=== PATIENT | male | born 1945 | race Caucasian/White ===

== ENCOUNTER 2017-08-09 19:15 | Emergency (ER) | payer MEDICARE ==
[2017-08-09] MEDS ORDERED: Effient 10 MG TABLET PO ONE (19:16)
[2017-08-09] MEDS ORDERED: BABY ASPIRIN 81 MG CHEW PO ONE ×2 (19:16→19:40)
[2017-08-09] MEDS ORDERED: Nitrostat 0.4 MG (ED) SL ONE ×2 (19:16→19:40)
[2017-08-09] MEDS ORDERED: Ntg 0.2MG/Ml in D5W GLASS*** 250 ML IV ONE (19:16)
[2017-08-09 19:22] VITALS: BP 176/109; O2SAT 98
[2017-08-09 19:29] VITALS: PULSE 85
[2017-08-09] MEDS ORDERED: Sodium Chloride 0.9% 1000 ML 1,000 ML IV STA (19:40)
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
[2017-08-09 19:50] LABS: BASOPHIL % 0.2 % (0.0-0.4); Eosinophil % 0.3 % (0.00-5.0); Granulocytes % 82.5 % (36.0-66.0); Lymphocytes % 10.1 % (24.0-44.0); Mean Cell Volume 88.3 fl (78-100); Mean Corpuscular Hemoglobin 29.1 pg (26-32); Mean Platelet Volume 9.4 fl (6-9.5); Monocytes % 6.9 % (0.0-12.0); Platelet Count 204 K/mm3 (150-450); Red Blood Count 4.71 M/mm3 (4.1-5.6); Red Cell Distribution Width 13.4 % (11.5-14.0)
[2017-08-09] MEDS ORDERED: Sodium Chloride 0.9% 1000 ML 1,000 ML ONE (19:50)
[2017-08-09] MEDS ORDERED: Phenergan 25 MG INJ ONE (19:52)
[2017-08-09] MEDS ORDERED: Sodium Chloride 0.9% 1000 ML 0 ML ONE (19:52)
[2017-08-09] MEDS ORDERED: Hydromorphone 1 mg/ml Ampule IV ONE (20:00)
[2017-08-09] MEDS ORDERED: Hydromorphone 1 mg/ml Ampule ONE (20:02)
[2017-08-09 20:18] LABS: ALBUMIN 3.6 g/dL (3.4-5.0); ANION GAP 17.2 MEQ/L (5-15); BILIRUBIN,TOTAL 0.4 mg/dL (0.2-1.0); Carbon Dioxide 22.5 mEq/L (21-32); MAGNESIUM 1.7 mg/dL (1.8-2.4); Potassium 4.2 mEq/L (3.5-5.1); Total Protein 7.4 gm/dL (6.4-8.2)
--- NOTE | 2017-08-10 20:57 | XRAY ---
Exam: AP portable chest film from 2015 hrs. on 08/09/2017. Comparison: AP portable chest film from 06/03/2014 and two-view chest series from 01/23/2014 Indication: Chest pain. Findings: The transverse heart size appears within normal limits. There is mild tortuosity of the descending thoracic aorta. I note a mild lower mid thoracic levoscoliosis. The lungs are adequately inflated. There is a small calcified granuloma within the left costophrenic angle. Minimal costochondral calcification is seen at the anterior margin of the right fourth and fifth ribs. No air space infiltrates, vascular congestion, pneumothorax, or pleural fluid is seen. Impression: 1. No infiltrates, heart failure, or other acute cardiopulmonary disease is seen.
== END 2017-08-09 20:25 | disposition short-term general hospital (02) ==
LOC: ED 19:15
DX: I21.19 ST elevation (STEMI) myocardial infarction involving other coronary artery of inferior wall (principal); R07.89 Other chest pain; R11.0 Nausea; R05 Cough; M79.641 Pain in right hand; E78.00 Pure hypercholesterolemia, unspecified; E11.9 Type 2 diabetes mellitus without complications; Z79.899 Other long term (current) drug therapy; Z79.4 Long term (current) use of insulin
CPT/HCPCS: 36000; 36415; 71010; 80053; 82150; 83690; 83735; 83880; 84484; 85025; 86308; 87070; 87430; 87631; 93005; 93041; 96360; 96375; 99291; J1170; J2550; A9270-GY

== ENCOUNTER 2017-12-16 04:26 | Inpatient (IN) | payer MEDICARE ==
[2017-12-16] MEDS ORDERED: ZOFRAN ODT 4 MG PO ONE (04:46)
[2017-12-16] MEDS ORDERED: PROTONIX 40 MG IV IV ONE ×2 (04:49→04:52)
[2017-12-16] MEDS ORDERED: Zofran 4 MG/2 ML VIAL IV ONE ×2 (04:49→07:10)
[2017-12-16] MEDS ORDERED: ZOFRAN ODT 4 MG ONE (04:51)
[2017-12-16] MEDS ORDERED: Zofran 4 MG/2 ML VIAL ONE ×2 (04:52→07:13)
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
[2017-12-16] MEDS ORDERED: Sodium Chloride 0.9% 1000 ML 1,000 ML IV SCH ×2 (05:00→07:15)
[2017-12-16 05:41] LABS: BASOPHIL % 0.2 % (0.0-0.4); Basophil (Absolute #) 0.03 (0-0.4); Eosinophil % 0.9 % (0.00-5.0); Eosinophil (Absolute #) 0.15 (0-0.5); Granulocyte Absolute (ANC) 13.86 (1.4-6.9); Granulocytes % 84.3 % (36.0-66.0); Hematocrit 39.6 % (42-50); Hemoglobin 12.9 gm/dl (12.5-18.0); Lymphocyte (Absolute #) 1.32 (1.0-4.6); Mean Cell Volume 92.3 fl (78-100); Mean Corpuscular Hemoglobin 30.1 pg (26-32); Mean Corpuscular Hgb Concent. 32.6 g/dl (32-36); Mean Platelet Volume 9.9 fl (6-9.5); Monocyte (Absolute #) 1.09 (0.0-1.3); Monocytes % 6.6 % (0.0-12.0); Platelet Count 202 K/mm3 (150-450); Red Blood Count 4.29 M/mm3 (4.1-5.6); Red Cell Distribution Width 13.2 % (11.5-14.0); White Blood Count 16.5 K/mm3 (4.0-10.5)
[2017-12-16 06:09] LABS: ALBUMIN 3.6 g/dL (3.4-5.0); ANION GAP 17.2 MEQ/L (5-15); BILIRUBIN,TOTAL 0.3 mg/dL (0.2-1.0); Calcium 9.1 mg/dL (8.5-10.1); Carbon Dioxide 22.5 mEq/L (21-32); Creatinine 1 4.13 mg/dl (0.55-1.30); Potassium 4.4 mEq/L (3.5-5.1)
[2017-12-16] MEDS ORDERED: SUBLIMAZE 100 MCG/2 ML IV ONE (07:11)
[2017-12-16] MEDS ORDERED: SUBLIMAZE 100 MCG/2 ML ONE (07:14)
--- NOTE | 2017-12-16 09:11 | XRAY ---
Indication: Emesis, diarrhea, and chills. Multiple contiguous axial images obtained through the abdomen and pelvis without contrast as ordered. Comparison: September 27, 2014. Lung bases again demonstrates minimal bibasilar dependent atelectasis and calcified granulomas. Heart is not enlarged. Noncontrasted stomach and bowel loops appear nonobstructed. Appendix surgically absent. Mild fluid distended small and large bowel loops with some fluid leveling, ileus versus enterocolitis. No free fluid/air. Stable bilateral renal cortical thinning and a few calcified splenic granulomas. New 12 mm left upper pole exophytic high density lesion. Remaining liver, gallbladder, pancreas, spleen, adrenal glands, kidneys, ureters, and bladder appear unremarkable for noncontrast exam. Moderate aortoiliac calcifications without AAA. Osseous structures intact again with mild degenerative changes throughout the spine. Impression: 1. New left renal hyperdense lesion as detailed. Dedicated ultrasound or contrast-enhanced CT may yield further information. 2. Ileus versus enterocolitis. Comment: Preliminary interpretation was made by [facility]. No discrepancy. CTDI 22.29
[2017-12-16] MEDS: NovoLOG Insulin SQ PRN ×3 (09:54→16:25)
[2017-12-16] MEDS ORDERED: INSULIN LISPRO 20 UNIT SQ SCH (11:15)
[2017-12-16] MEDS ORDERED: Norco 10/325 MG Tablet PO PRN (11:15)
[2017-12-16] MEDS ORDERED: MEDICATION INTERVENTION MC PRN (11:22)
[2017-12-16] MEDS ORDERED: NovoLOG Insulin SQ SCH (11:30)
[2017-12-16] MEDS: Zofran 4 MG/2 ML VIAL IV PRN ×2 (12:02→18:26)
[2017-12-16] MEDS: DILAUDID 2 MG INJECTION IV PRN ×2 (12:10→18:26)
[2017-12-16] MEDS: Lopressor 50 MG PO SCH ×2 (12:14→21:16)
[2017-12-16] MEDS: NEURONTIN 300 MG PO SCH ×3 (12:14→21:06)
[2017-12-16] MEDS: Protonix 40MG Tablet PO SCH ×2 (12:15→21:07)
[2017-12-16] MEDS: ROCEPHIN 1 Gm-D5w 50 ml Bag** 1 G/50 ML IVPB IV SCH (12:23)
[2017-12-16 12:25] LABS: 027 TOX PROD PRESUMPTIVE NEGATIVE (NEGATIVE); TOXIGENIC C. DIFF ORG NEGATIVE (NEGATIVE)
[2017-12-16] MEDS: FLAGYL 500 MG IVPB 500 MG/100 ML BAG IV SCH ×3 (13:25→21:07)
[2017-12-16] MEDS ORDERED: ZOCOR 20MG PO SCH (22:00)
[2017-12-16] MEDS ORDERED: Prozac 20 MG PO SCH (22:00)
[2017-12-16] MEDS ORDERED: PLAVIX 75 MG Tablet PO SCH (22:00)
[2017-12-16] MEDS ORDERED: NON-FORMULARY ITEM (Atorvastatin Calcium [Atorvastatin Calcium] 80 MG) PO SCH (22:00)
[2017-12-17] MEDS: Sodium Chloride 0.9% 1000 ML 1,000 ML IV SCH ×2 (00:04→11:18)
[2017-12-17] MEDS: Zofran 4 MG/2 ML VIAL IV PRN (05:05)
[2017-12-17] MEDS: FLAGYL 500 MG IVPB 500 MG/100 ML BAG IV SCH (05:07)
[2017-12-17] MEDS: DILAUDID 2 MG INJECTION IV PRN (05:07)
[2017-12-17 05:33] LABS: Hematocrit 39.2 % (42-50); Hemoglobin 12.5 gm/dl (12.5-18.0); Mean Corpuscular Hgb Concent. 31.9 g/dl (32-36); Mean Platelet Volume 9.7 fl (6-9.5); Platelet Count 160 K/mm3 (150-450); Red Blood Count 4.17 M/mm3 (4.1-5.6); Red Cell Distribution Width 13.6 % (11.5-14.0); White Blood Count 6.4 K/mm3 (4.0-10.5)
[2017-12-17 06:01] LABS: ALBUMIN 3.4 g/dL (3.4-5.0); ANION GAP 17.8 MEQ/L (5-15); BILIRUBIN,TOTAL 0.2 mg/dL (0.2-1.0); Calcium 8.3 mg/dL (8.5-10.1); Carbon Dioxide 18.4 mEq/L (21-32); Creatinine 1 4.39 mg/dl (0.55-1.30); Potassium 3.9 mEq/L (3.5-5.1); Total Protein 6.8 gm/dL (6.4-8.2)
[2017-12-17] MEDS: ROCEPHIN 1 Gm-D5w 50 ml Bag** 1 G/50 ML IVPB IV SCH (09:27)
[2017-12-17] MEDS: Protonix 40MG Tablet PO SCH (09:27)
[2017-12-17] MEDS: NEURONTIN 300 MG PO SCH (09:27)
[2017-12-17] MEDS: Lopressor 50 MG PO SCH (09:27)
[2017-12-17] MEDS ORDERED: PROTONIX 40 MG IV IV SCH (10:00)
[2017-12-17] MEDS ORDERED: BENADRYL 50 MG/ML IV PRN (10:00)
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
[2017-12-17 13:15] VITALS: BP 121/70; PULSE 80; O2SAT 99
--- NOTE | 2017-12-17 13:52 | HP ---
HISTORY OF PRESENT ILLNESS: Jesse Yusuf is a 72 year old male with past medical history of hypertension, congestive heart failure, diabetes mellitus, chronic renal failure, coronary artery disease, hyperlipidemia, anxiety and chronic pain syndrome. He presented to the emergency room earlier this morning with symptoms of several episodes of vomiting and diarrhea which had started three hours prior to his presentation. He had complained of generalized weakness, not feeling well overall, feeling cold. He denied any intake of unusual diet. Initial vitals in the emergency room were: Blood pressure 128/99, heart rate 80, respiratory rate 16 and temperature 97.4F. After initial evaluation he was treated with normal saline 1 liter, Fentanyl 50 mcg IV x1, Zofran 4 mg IV x2, Protonix 40 mg IV x1. Subsequently he was admitted to the medical floor for further monitoring and management. Since admission he continued to have persistence of vomiting and diarrhea. At the time of this evaluation earlier today he was complaining of nausea and several episodes of diarrhea, generalized abdominal discomfort. Complained of fatigue. PAST MEDICAL/SURGICAL HISTORY: As noted above. The patient states that his dialysis was discontinued about three weeks ago since his kidney doctor advised him that he does not need it anymore. Kidney stones. Abscess on spine treated with IV antibiotics. Back surgery, tonsillectomy. ALLERGIES: MORPHINE. MEDICATIONS: Current medications were reviewed. FAMILY HISTORY: Noncontributory. SOCIAL HISTORY: The patient lives at home and is a former smoker, has smoked for 30 years. He denies any illicit drug use. REVIEW OF SYSTEMS: Denies headache or dizziness. Complains of chills. Complains of fatigue. Denies chest pain, shortness of breath or cough. Complains of abdominal pain, nausea, vomiting and diarrhea. Denies urinary complaints. PHYSICAL EXAMINATION: An elderly male lying comfortably in bed, not in acute distress. VITAL SIGNS: Blood pressure 126/70, heart rate 86, respiratory rate 20, temperature 97F. Oxygen saturation 93% on room air. HEENT: Pallor is present. NECK: No JVD is present. CVS: S1, S2 present. RESPIRATORY: Breath sounds are bilaterally diminished and clear to auscultation anteriorly. ABDOMEN: Obese, soft, generalized tenderness present. No guarding or rigidity present. NEURO: He is alert, oriented x3. Hard of hearing. Answers simple questions. Follows simple commands. EXTREMITIES: No edema on bilateral lower extremities. LABORATORY DATA AND TESTS: Labs from today showed CBC with white blood cell 16.5, hemoglobin 12.9, hematocrit 49.6, PLT 202,000. CMP notable for BUN 54, creatinine 4.13, glucose 243. Liver function test unremarkable. Lipase within normal limits. CT scan of abdomen and pelvis showed no mucosal bowel wall thickening, findings most likely representing enterocolitis per preliminary report. ASSESSMENT: A72 year old man with impression: 1) Abdominal pain likely enterocolitis. 2) Nausea and vomiting. 3) Renal insufficiency. 4) Dehydration. 5) Diarrhea. 6) History of hypertension/congestive heart failure. 7) Diabetes mellitus with diabetic neuropathy. 8) Chronic back pain. 9) Anxiety. PLAN: The patient is admitted for further monitoring and management. Will continue IV fluids. Anti-emetics were added. Stool Clostridium difficile was negative. Will recheck on stool Clostridium difficile. Broad spectrum IV antibiotics have been added. Continue PRN analgesics. Continue to follow CBC and electrolytes. Discussed with the patient regarding possible nephrology consultation if renal functions remain abnormal. The patient does not wish to pursue nephrology consultation at this time. The patient's clinical condition, work up results as outline and plan of management was discussed with him. He seems to be in understanding and agreement of the same except opting obtaining the nephrology consult. The plan was discussed with charge nurse, Aruna.
== END 2017-12-17 13:30 | disposition home or self-care (01) | DRG 683 ==
LOC: ED 04:26 → MED SURG 07:37
PROVIDERS: ADMIT General Practice; ATTEND General Practice
DX: R11.10 Vomiting, unspecified (principal); R19.7 Diarrhea, unspecified; E11.00 Type 2 diabetes mellitus with hyperosmolarity without nonketotic hyperglycemic-hyperosmolar coma (NKHHC); N18.9 Chronic kidney disease, unspecified; N17.8 Other acute kidney failure; G62.9 Polyneuropathy, unspecified; M19.90 Unspecified osteoarthritis, unspecified site; K21.9 Gastro-esophageal reflux disease without esophagitis; I13.2 Hypertensive heart and chronic kidney disease with heart failure and with stage 5 chronic kidney disease, or end stage renal disease; K52.9 Noninfective gastroenteritis and colitis, unspecified; N18.5 Chronic kidney disease, stage 5; E11.40 Type 2 diabetes mellitus with diabetic neuropathy, unspecified; I25.10 Atherosclerotic heart disease of native coronary artery without angina pectoris; E78.5 Hyperlipidemia, unspecified; F41.9 Anxiety disorder, unspecified; G89.4 Chronic pain syndrome; Z87.891 Personal history of nicotine dependence; E86.0 Dehydration
CPT/HCPCS: 36000; 36415; 74176; 80053; 82150; 82962; 83690; 85025; 85027; 87040; 87177; 87209; 87493; 87507; 99285; J0696; J1170; J2405; J3010; Q0162; A9270-GY

== ENCOUNTER 2017-12-18 19:23 | Inpatient (IN) | payer MEDICARE ==
[2017-12-18] MEDS ORDERED: SUBLIMAZE 100 MCG/2 ML IV ONE (19:51)
[2017-12-18] MEDS ORDERED: Phenergan 25 MG INJ IV ONE (19:51)
[2017-12-18] MEDS ORDERED: Sodium Chloride 0.9% 1000 ML 1,000 ML IV STA (19:51)
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
[2017-12-18 20:13] LABS: BASOPHIL % 0.1 % (0.0-0.4); Basophil (Absolute #) 0.01 (0-0.4); Eosinophil % 1.2 % (0.00-5.0); Eosinophil (Absolute #) 0.11 (0-0.5); Granulocyte Absolute (ANC) 7.52 (1.4-6.9); Granulocytes % 80.8 % (36.0-66.0); Hematocrit 39.6 % (42-50); Hemoglobin 12.6 gm/dl (12.5-18.0); Lymphocyte (Absolute #) 0.96 (1.0-4.6); Lymphocytes % 10.3 % (24.0-44.0); Mean Cell Volume 94.3 fl (78-100); Mean Corpuscular Hgb Concent. 31.8 g/dl (32-36); Mean Platelet Volume 9.5 fl (6-9.5); Monocyte (Absolute #) 0.71 (0.0-1.3); Monocytes % 7.6 % (0.0-12.0); Platelet Count 173 K/mm3 (150-450); Red Cell Distribution Width 13.4 % (11.5-14.0); White Blood Count 9.3 K/mm3 (4.0-10.5)
[2017-12-18] MEDS ORDERED: Phenergan 25 MG INJ ONE (20:17)
[2017-12-18] MEDS ORDERED: Sodium Chloride 0.9% 1000 ML 1,000 ML ONE (20:18)
[2017-12-18] MEDS ORDERED: SUBLIMAZE 100 MCG/2 ML ONE (20:18)
[2017-12-18 20:54] LABS: ALBUMIN 3.7 g/dL (3.4-5.0); ANION GAP 16.7 MEQ/L (5-15); BILIRUBIN,TOTAL 0.3 mg/dL (0.2-1.0); Calcium 8.6 mg/dL (8.5-10.1); Carbon Dioxide 19.8 mEq/L (21-32); Creatinine 1 4.61 mg/dl (0.55-1.30); Potassium 4.2 mEq/L (3.5-5.1); Total Protein 7.2 gm/dL (6.4-8.2)
[2017-12-18] MEDS ORDERED: Magnesium 1 Gm / 100 Ml D5W*** 100 ML IV ONE ×2 (22:21→23:00)
[2017-12-18 23:29] LABS: Appearance CLEAR (CLEAR); Leukocyte Esterase TRACE (NEGATIVE); Nitrite NEGATIVE (NEGATIVE); Protein,Urine Dip 30 (Negative); Specific Gravity 1.015 (1.005-1.025)
[2017-12-18 23:30] LABS: Amourphous Crystal FEW /HPF (NEGATIVE); Bacteria FEW /HPF (NEGATIVE); Bilirubin NEGATIVE (NEGATIVE); Blood 50 Ery/ul (0-5); Epithelial Cells RARE /HPF (FEW); Glucose 1000 mg/dL (NEGATIVE); Ketones SMALL (NEGATIVE); Urobilinogen NORMAL mg/dL (0-1)
[2017-12-19] MEDS: Sodium Chloride 0.9% 1000 ML 1,000 ML IV SCH ×3 (02:39→22:30)
[2017-12-19] MEDS: SUBLIMAZE 100 MCG/2 ML IV PRN ×3 (03:35→19:43)
[2017-12-19] MEDS: Phenergan 25 MG INJ IV PRN ×2 (04:01→18:27)
[2017-12-19] MEDS: NovoLOG Insulin SQ PRN (05:53)
[2017-12-19 06:20] LABS: BASOPHIL % 0.1 % (0.0-0.4); Basophil (Absolute #) 0.01 (0-0.4); Eosinophil % 1.2 % (0.00-5.0); Eosinophil (Absolute #) 0.08 (0-0.5); Granulocyte Absolute (ANC) 4.54 (1.4-6.9); Granulocytes % 66.7 % (36.0-66.0); Hematocrit 36.2 % (42-50); Hemoglobin 11.4 gm/dl (12.5-18.0); Lymphocyte (Absolute #) 1.43 (1.0-4.6); Mean Cell Volume 94.8 fl (78-100); Mean Corpuscular Hemoglobin 29.8 pg (26-32); Mean Corpuscular Hgb Concent. 31.5 g/dl (32-36); Mean Platelet Volume 9.6 fl (6-9.5); Monocyte (Absolute #) 0.75 (0.0-1.3); Platelet Count 163 K/mm3 (150-450); Red Blood Count 3.82 M/mm3 (4.1-5.6); Red Cell Distribution Width 13.5 % (11.5-14.0); White Blood Count 6.8 K/mm3 (4.0-10.5)
[2017-12-19 07:35] LABS: ALBUMIN 3.1 g/dL (3.4-5.0); ANION GAP 16.7 MEQ/L (5-15); BILIRUBIN,TOTAL 0.1 mg/dL (0.2-1.0); Calcium 8.1 mg/dL (8.5-10.1); Carbon Dioxide 17.5 mEq/L (21-32); Creatinine 1 4.09 mg/dl (0.55-1.30); MAGNESIUM 2.1 mg/dL (1.8-2.4); Potassium 4.1 mEq/L (3.5-5.1); Total Protein 6.3 gm/dL (6.4-8.2)
--- NOTE | 2017-12-19 08:45 | XRAY ---
Indication: Abdominal pain and emesis. Recent treatment for flu. Multiple contiguous axial images obtained through the abdomen and pelvis without contrast as ordered. Comparison: December 16, 2017. Lung bases again demonstrates minimal bibasilar dependent atelectasis and calcified granulomas. Heart is not enlarged. Noncontrasted stomach unremarkable. Stable mild fluid distended small and large bowel loops with some fluid leveling again ileus versus enterocolitis. No free fluid/air. Previous reported appendectomy. Gallbladder demonstrates minimal gravel/sludge in the dependent portion without abnormal biliary distention. Again a few calcified splenic granulomas, bilateral renal cortical thinning, and small left upper renal exophytic high density lesion. Remaining liver, gallbladder, pancreas, spleen, adrenal glands, kidneys, ureters, and bladder appear unremarkable for noncontrast exam. Stable moderate aortoiliac calcifications. Osseous structures intact again with mild generative changes throughout the spine. Impression: 1. Minimal gallbladder gravel/sludge. Gallbladder sonogram may yield further information if clinically warranted. 2. Stable fluid distended small and large bowel loops, ileus versus enterocolitis. 3. Stable bilateral renal cortical thinning and small left renal hyperdense lesion. CT DI 21.98
--- NOTE | 2017-12-19 08:49 | XRAY ---
Indication: Abdominal pain. Two-dimensional right upper quadrant abdominal sonogram performed. Comparison: March 20, 2012. Gallbladder appears partially contracted with new tiny intraluminal gravel/sludge in the dependent portion. Gallbladder wall is thickened measuring 3.5 mm and could be explained by contracted appearance. No pericholecystic fluid. Common bile duct measures 5.8 mm. No intrahepatic biliary distention. Remaining visualized portions of the liver, pancreas, and right kidney appear sonographically unremarkable. Right kidney measures 10.8 cm in length. No ascites. Impression: 1. Partially contracted gallbladder which could explain wall thickening though chronic cholecystitis cannot be completely excluded. New tiny intraluminal gravel/sludge. 2. Remaining gallbladder sonogram is negative.
[2017-12-19] MEDS ORDERED: PROTONIX 40 MG IV IV SCH (10:00)
[2017-12-19] MEDS: FLAGYL 500 MG IVPB 500 MG/100 ML BAG IV SCH ×2 (10:03→18:20)
[2017-12-19] MEDS ORDERED: MEDICATION INTERVENTION MC PRN (10:48)
[2017-12-19] MEDS: Norco 10/325 MG Tablet PO PRN ×2 (11:03→18:28)
[2017-12-19] MEDS: Lantus Insulin SQ SCH ×3 (11:03→22:26)
[2017-12-19] MEDS: Lopressor 50 MG PO SCH ×2 (11:03→22:24)
[2017-12-19] MEDS: NEURONTIN 300 MG PO SCH ×3 (11:03→22:25)
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
[2017-12-19] MEDS ORDERED: BRIDION 200MG/2ML IV ONE (14:11)
[2017-12-19] MEDS ORDERED: SUBLIMAZE 250 MCG/5 ML IV ONE (14:11)
[2017-12-19] MEDS ORDERED: DIPRIVAN 200 MG/20 ML IV ONE (14:11)
[2017-12-19] MEDS ORDERED: Zofran 4 MG/2 ML VIAL IV ONE (14:11)
[2017-12-19] MEDS ORDERED: Zemuron 100 MG/10 ML IV ONE (14:11)
[2017-12-19] MEDS ORDERED: NON-FORMULARY ITEM (Insulin Detemir [Levemir] 10 UNIT) SQ SCH (15:00)
[2017-12-19] MEDS ORDERED: INSULIN LISPRO 20 UNIT SQ SCH (17:00)
[2017-12-19] MEDS: NovoLOG Insulin SQ SCH (17:44)
[2017-12-19] MEDS ORDERED: NON-FORMULARY ITEM (Atorvastatin Calcium [Atorvastatin Calcium] 80 MG) PO SCH (22:00)
[2017-12-19] MEDS: PLAVIX 75 MG Tablet PO SCH (22:25)
[2017-12-19] MEDS: Prozac 20 MG PO SCH (22:25)
[2017-12-19] MEDS: ZOCOR 20MG PO SCH (22:25)
[2017-12-19] MEDS: Protonix 40MG Tablet PO SCH (22:25)
[2017-12-20] MEDS: FLAGYL 500 MG IVPB 500 MG/100 ML BAG IV SCH ×3 (01:47→17:47)
[2017-12-20] MEDS: NovoLOG Insulin SQ PRN ×2 (04:32→22:55)
[2017-12-20 06:18] LABS: Hematocrit 35.9 % (42-50); Hemoglobin 11.3 gm/dl (12.5-18.0); Mean Cell Volume 95.5 fl (78-100); Mean Corpuscular Hgb Concent. 31.5 g/dl (32-36); Mean Platelet Volume 9.7 fl (6-9.5); Platelet Count 153 K/mm3 (150-450); Red Blood Count 3.76 M/mm3 (4.1-5.6); Red Cell Distribution Width 13.7 % (11.5-14.0); White Blood Count 5.6 K/mm3 (4.0-10.5)
[2017-12-20 06:24] LABS: ALBUMIN 2.7 g/dL (3.4-5.0); ALKALINE PHOSPHATASE 58 U/L (46-116); ANION GAP 12.9 MEQ/L (5-15); BLOOD UREA NITROGEN 39 mg/dL (9-20); CHLORIDE 117 mEq/L (98-107); Calcium 7.6 mg/dL (8.5-10.1); Carbon Dioxide 18.9 mEq/L (21-32); Creatinine 1 3.46 mg/dl (0.55-1.30); EST GLOMERULAR FILTRATION RATE 19 ML/MIN; Glucose 262 MG/DL (70-110); Potassium 3.9 mEq/L (3.5-5.1); SGOT/AST 17 U/L (15-37); SGPT/ALT 13 U/L (12-78); SODIUM 145 mEq/L (136-145); Total Protein 5.5 gm/dL (6.4-8.2)
[2017-12-20 06:28] LABS: BILIRUBIN,TOTAL < 0.10 mg/dL (0.2-1.0)
--- NOTE | 2017-12-20 07:56 | CONS ---
CONSULT DATE: 12/19/2017 REASON FOR CONSULT: Gallbladder disease. HISTORY: The patient is seen and examined at the bedside. He had Norovirus here recently, a bout of diarrhea that subsequently cleared. He now has some right upper quadrant discomfort. He has had the diarrhea. He has had nausea. He has had renal failure, heart attacks and multiple medical problems. Most of his medical history dates back about ten years. He has had multiple evaluations, several doses of dye. His creatinine clearance was down to 17%. He was found to have a paraspinal abscess. He spent over a year in rehab and then about a year at home. He subsequently has gotten quite a bit better. He then had renal insufficiency for about ten years that required dialysis about three to six months ago. He had two heart attacks with treatment here about six months ago. He has been struggling somewhat subsequently. He thinks his renal insufficiency is somewhat related to his diarrhea which is related to his gallbladder. On physical exam he has very mild right upper quadrant tenderness. He has no palpable mass. His CT scan shows a thickened, retracted gallbladder with stones, I believe was stones. He desires to have this out. He would like this out this admission if possible. Discussed with that Dr. Caceres is here tomorrow evening and might be able to have time to put this on the schedule. Probable laparoscopic possible open. The gallbladder wall is thickened and there is some increased risk and he is aware of this. IMPRESSION: Thickened gallbladder, chronic cholecystitis and cholelithiasis. PLAN: Laparoscopic cholecystectomy possible open. It will be scheduled as possible.
[2017-12-20] MEDS: Phenergan 25 MG INJ IV PRN ×3 (09:25→23:17)
[2017-12-20] MEDS: SUBLIMAZE 100 MCG/2 ML IV PRN ×2 (09:26→23:10)
--- NOTE | 2017-12-20 10:09 | XRAY ---
Indication: Preop exam. Comparison: August 09, 2017. PA/lateral chest again hyperinflated with new right-sided large-bore double-lumen dialysis catheter. Stable left costophrenic angle calcified granuloma. Heart and mediastinal structures within normal limits. Bony thorax intact again with mild degenerative changes. Impression: 1. New right-sided dialysis catheter without complications. 2. Nonacute hyperinflated chest with evidence for old granulomatous disease.
[2017-12-20] MEDS ORDERED: Lactated Ringers 1,000 ML IV ONE (10:24)
[2017-12-20] MEDS ORDERED: Sensorcaine 0.25% 10 ML ONE (10:24)
[2017-12-20] MEDS: Protonix 40MG Tablet PO SCH ×2 (11:19→22:54)
[2017-12-20] MEDS: Lopressor 50 MG PO SCH ×2 (11:20→22:54)
[2017-12-20] MEDS ORDERED: MEFOXIN 2 GM PREMIX** 2 GM/50 ML ML IV SCH (12:00)
[2017-12-20] MEDS ORDERED: Lactated Ringers 1,000 ML IV SCH (12:00)
--- NOTE | 2017-12-20 12:01 | PCM.NOTE ---
Date and Time: 12/20/17 1159 Subjective Assessment: going for gall bladder surgery today - Review of Systems Constitutional: No Fever, No Chills Eyes: No Symptoms Ears, Nose, & Throat: No Symptoms Respiratory: No Cough, No Short Of Breath Cardiac: No Chest Pain, No Edema, No Syncope Abdominal/Gastrointestinal: No Abdominal Pain, No Nausea, No Vomiting, No Diarrhea Genitourinary Symptoms: No Dysuria Musculoskeletal: No Back Pain, No Neck Pain Skin: No Rash Neurological: No Dizziness, No Focal Weakness, No Sensory Changes Psychological: No Symptoms Endocrine: No Symptoms Hematologic/Lymphatic: No Symptoms Immunological/Allergic: No Symptoms Objective Exam General Appearance: no apparent distress, alert Neurologic Exam: alert, oriented x 3, cooperative, normal mood/affect, nml cerebellar function, sensation nml, No motor deficits Skin Exam: normal color, warm, dry Eye Exam: PERRL, EOMI, eyes nml inspection Ears, Nose, Throat Exam: normal ENT inspection, pharynx normal, moist mucous membranes Neck Exam: normal inspection, non-tender, supple, full range of motion Respiratory Exam: normal breath sounds, lungs clear, No respiratory distress Cardiovascular Exam: regular rate/rhythm, normal heart sounds Gastrointestinal/Abdomen Exam: soft, No tenderness, No mass Extremity Exam: normal inspection, normal range of motion Back Exam: normal inspection, normal range of motion, No CVA tenderness, No vertebral tenderness Male Genitalia Exam: deferred Rectal Exam: deferred OBJECTIVE DATA Vital Signs: Vital Signs - 24 hr Temp Pulse Resp BP Pulse Ox 12/20/17 11:33 98 F 80 20 138/80 96 12/20/17 07:39 98 F 80 20 138/80 96 12/20/17 04:00 98.2 F 71 18 137/74 97 12/20/17 00:00 98.5 F 77 18 144/76 98 12/19/17 20:00 98.3 F 71 20 157/73 100 12/19/17 15:07 97.8 F 82 20 126/70 98 Pain Assessment - Last Documented Pain Intensity 4 Pain Scale Used [facility] Intake and Output: Intake & Output 12/17/17 12/18/17 12/19/17 12/20/17 11:59 11:59 11:59 11:59 Intake Total 3136 Output Total 1000 Balance 2136 Weight 78.6 kg Lab Results: Accuchecks Date 12/20/17 Date 12/19/17 Date 12/19/17 Time 04:00 Time 20:00 Time 17:41 Accucheck Value: 211 Accucheck Value: 189 Accucheck Value: 153 Lab Results-Last 24 Hours 12/20/17 12/20/17 Range/Units 05:40 05:40 WBC 5.6 (4.0-10.5) K/mm3 RBC 3.76 L (4.1-5.6) M/mm3 Hgb 11.3 L (12.5-18.0) gm/dl Hct 35.9 L (42-50) % MCV 95.5 (78-100) fl MCH 30.0 (26-32) pg MCHC 31.5 L (32-36) g/dl RDW 13.7 (11.5-14.0) % Plt Count 153 (150-450) K/mm3 MPV 9.7 H (6-9.5) fl Sodium 145 (136-145) mEq/L Potassium 3.9 (3.5-5.1) mEq/L Chloride 117 H (98-107) mEq/L Carbon Dioxide 18.9 L (21-32) mEq/L Anion Gap 12.9 (5-15) MEQ/L BUN 39 H (9-20) mg/dL Creatinine 3.46 H (0.55-1.30) mg/dl Estimated GFR 19 ML/MIN Glucose 262 H (70-110) MG/DL Calcium 7.6 L (8.5-10.1) mg/dL Total Bilirubin < 0.10 L (0.2-1.0) mg/dL AST 17 (15-37) U/L ALT 13 (12-78) U/L Alkaline Phosphatase 58 (46-116) U/L Serum Total Protein 5.5 L (6.4-8.2) gm/dL Albumin 2.7 L (3.4-5.0) g/dL Radiology Exams: Radiology Procedures Category Date Time Status CHEST 2 VIEWS (PA AND LAT) Urgent Exams 12/20/17 09:15 Completed Multi-Disciplinary Progress Notes: Multi-Disciplinary Progress Notes 12/20/17 10:30 (created 12/20/17 11:07) Case Management Note by Aliyah Sheriff SPOKE WITH DR. SIERRA PER ANESTHESIA REQUEST FOR MEDICAL CLEARANCE FOR SURGERY WITH ELEVATED BUN/CREAT. DR. SIERRA REPORTS THAT PT IS MEDICALLY CLEARED, ELEVATED BUN/CREAT IS CHRONIC IN NATURE. Initialized on 12/20/17 11:07 - END OF NOTE Assessment/Plan (1) Cholecystitis Current Visit: Yes Status: Acute Assessment & Plan: going for surgery, patient is hemodynamicaly stable. Ok to proceed with surgery Code(s): K81.9 - CHOLECYSTITIS, UNSPECIFIED (2) Abdominal pain Current Visit: Yes Status: Acute Qualifiers: Abdominal location: right upper quadrant Qualified Code(s): R10.11 - Right upper quadrant pain Code(s): R10.9 - UNSPECIFIED ABDOMINAL PAIN (3) [id number] renal failure Current Visit: Yes Status: Acute Qualifiers: Code(s): N17.9 - ACUTE KIDNEY FAILURE, UNSPECIFIED; N18.9 - CHRONIC KIDNEY DISEASE, UNSPECIFIED (4) Diarrhea Current Visit: Yes Status: Acute Code(s): R19.7 - DIARRHEA, UNSPECIFIED (5) Nausea & vomiting Current Visit: Yes Status: Acute Code(s): R11.2 - NAUSEA WITH VOMITING, UNSPECIFIED (6) Chronic renal impairment Current Visit: Yes Status: Chronic Code(s): N18.9 - CHRONIC KIDNEY DISEASE, UNSPECIFIED
[2017-12-20] MEDS ORDERED: Sodium Chloride 0.9% 1000 ML 1,000 ML ONE (12:20)
[2017-12-20] MEDS: NovoLOG Insulin SQ SCH ×2 (12:58→20:14)
[2017-12-20] MEDS: NEURONTIN 300 MG PO SCH ×3 (12:59→22:54)
[2017-12-20] MEDS: Lantus Insulin SQ SCH ×3 (12:59→22:54)
[2017-12-20] MEDS: PLAVIX 75 MG Tablet PO SCH (15:08)
--- NOTE | 2017-12-20 15:26 | OP ---
SURGERY DATE/TIME: 12/20/2017 1335 PREOPERATIVE DIAGNOSES: 1) Symptomatic biliary sludge versus tiny stone. 2) Chronic cholecystitis. POSTOPERATIVE DIAGNOSIS: 1) Symptomatic biliary sludge versus tiny stone. 2) Chronic cholecystitis. PROCEDURE: Laparoscopic cholecystectomy. SURGEON: Dr. Abraham Caceres. ANESTHESIA: General. ESTIMATED BLOOD LOSS: Minimal. INDICATIONS: As noted above. Risks and benefits explained in detail but not limited to and consent was obtained. DESCRIPTION OF PROCEDURE AND FINDINGS: The patient was taken to the OR after taking some time to place lines preoperatively. General anesthesia was induced. Abdomen prepped and draped in the usual sterile fashion. After official time out and no disagreement with planned procedure, a transverse incision made at supraumbilical area. Fascia grasped and pulled upward. Veress needle inserted and tested with saline. Pneumoperitoneum accomplished insufflating opening pressure of 0-15. An 11 mm bladeless port and camera were inserted without difficulty followed by two - 5 mm right upper quadrant ports and a 5 mm epigastric port later. There was no evidence of any intra-abdominal injury secondary to trocar insertion. He had some extensive chronic fibrofatty inflammatory reaction around the gallbladder. It was retracted over the edge of the liver and dissected posterior, lateral to anterior fashion. Slowly and carefully dissecting the main cystic arterial branch on the gallbladder, clipped and divided. It opened up the angle. The cystic duct and infundibular junction slowly and carefully well skeletonized until a critical view was obtained both anteriorly and posteriorly. It should be noted at this point the gallbladder grasper this thin walled, friable gallbladder fell apart with the grasper spilling some bile. There was no evidence of any obvious stone or sludge spillage visible. Copious amount of irrigation irrigating until clear as possible. Gallbladder was regrasped. Slowly and carefully the cystic duct and infundibular junction slowly and carefully well skeletonized and removed with Endo Kittner. Once this was accomplished the cystic duct was then clipped x3 and divided in usual fashion. Gallbladder slowly and carefully dissected free from its dense almost concrete attachments to the liver bed staying directly on the gallbladder wall clipping additional oozing side branch off the cystic artery directly on the gallbladder wall slowly and carefully staying on the gallbladder wall. Just prior to releasing from final attachments to the anterior edge of the liver the liver bed re-inspected. Clips noted to be in place in cystic duct and cystic artery stumps. There were no signs of any active bleeding or bile leakage from the liver bed itself. Clips noted to be in place in cystic duct and cystic artery stumps. The gallbladder was released from final attachments to the anterior edge of the liver, placed in a Pleatman sac and pulled free out the umbilical 10/11 port site and passed off. The port is replaced. Copious amount of irrigation accomplished lateral to the liver and subhepatic space irrigating until clear. The liver bed re-inspected. Clips noted to be in place in cystic duct and cystic artery stumps. There were no signs of any active bleeding or bile leakage from the liver bed itself. Because of inflammatory reaction from the gallbladder itself and spillage of small amount of bile from the fundus it was elected to go ahead and leave a PAIGE drain in subhepatic space out through the lateral port incision and placed to bulb suction, secured with PDS suture. Clips were noted to be in place in cystic duct and cystic artery stumps. Drain is in good position. Fascial defects 10/11 port sites closed with puncture closure device under direct vision with the camera with #1 Vicryl. Pneumoperitoneum decompressed. An additional [address] an additional suture at supraumbilical 10/11 port site. Good hemostasis noted. The wound was irrigated out. Skin incision closed with 4-0 Vicryl. Steri-Strips and sterile dressing applied. 0.25% Marcaine local injected along the skin incision fascial defect. The patient tolerated the procedure well. There were no immediate complications. There was no family to discuss the findings with out in the waiting area. Likely observe him over night. If his PAIGE is serosanguineous and nonbilious he could likely be discharged at some point prior to discharge. Will check his liver function tomorrow but if his drain is clear and liver function tests are okay and he is feeling better, tolerating p.o. he can be discharged when okay with is medical physician, follow up in the office in ten days or so.
[2017-12-20] MEDS ORDERED: TYLENOL 325 MG PO PRN (16:22)
[2017-12-20] MEDS ORDERED: FEVERALL 650 MG RC PRN (16:22)
[2017-12-20] MEDS ORDERED: D5W/0.45NS W/ 20mEq KCl 1000 ML 1,000 ML IV SCH (16:30)
[2017-12-20] MEDS ORDERED: PHARMACY DOSING REQUIRED: DILAUDID PCA IV ONE (16:35)
[2017-12-20] MEDS: Prozac 20 MG PO SCH (22:55)
[2017-12-20] MEDS: ZOCOR 20MG PO SCH (22:55)
[2017-12-20] MEDS: Zofran 4 MG/2 ML VIAL IVIM PRN (23:11)
[2017-12-21] MEDS: FLAGYL 500 MG IVPB 500 MG/100 ML BAG IV SCH ×2 (01:10→10:42)
[2017-12-21] MEDS: NovoLOG Insulin SQ PRN ×2 (04:41→08:28)
[2017-12-21 06:21] LABS: ALBUMIN 2.7 g/dL (3.4-5.0); ALKALINE PHOSPHATASE 52 U/L (46-116); SGOT/AST 26 U/L (15-37); SGPT/ALT 14 U/L (12-78); Total Protein 5.6 gm/dL (6.4-8.2)
[2017-12-21 06:23] LABS: Direct Bilirubin < 0.05 MG/DL (0.0-0.2)
[2017-12-21] MEDS: SUBLIMAZE 100 MCG/2 ML IV PRN (08:27)
[2017-12-21] MEDS: NovoLOG Insulin SQ SCH (08:28)
[2017-12-21] MEDS: Zofran 4 MG/2 ML VIAL IVIM PRN (08:28)
[2017-12-21] MEDS ORDERED: ENOXAPARIN SODIUM SQ SCH (10:00)
[2017-12-21 10:15] LABS: Hemoglobin 11.5 gm/dl (12.5-18.0); Mean Cell Volume 97.4 fl (78-100); Mean Corpuscular Hgb Concent. 31.1 g/dl (32-36); Mean Platelet Volume 10.3 fl (6-9.5); Platelet Count 155 K/mm3 (150-450); Red Cell Distribution Width 13.9 % (11.5-14.0); White Blood Count 6.9 K/mm3 (4.0-10.5)
[2017-12-21 10:16] LABS: Mean Corpuscular Hemoglobin 30.2 pg (26-32)
[2017-12-21 10:27] LABS: ALBUMIN 2.7 g/dL (3.4-5.0); BILIRUBIN,TOTAL 0.1 mg/dL (0.2-1.0); Calcium 7.3 mg/dL (8.5-10.1); Carbon Dioxide 16.6 mEq/L (21-32); Creatinine 1 3.63 mg/dl (0.55-1.30); Potassium 4.4 mEq/L (3.5-5.1); Total Protein 5.6 gm/dL (6.4-8.2)
[2017-12-21] MEDS: Lopressor 50 MG PO SCH (10:42)
[2017-12-21] MEDS: Protonix 40MG Tablet PO SCH (10:42)
[2017-12-21] MEDS: NEURONTIN 300 MG PO SCH ×2 (10:42→15:26)
[2017-12-21] MEDS: Lantus Insulin SQ SCH ×2 (10:43→15:26)
[2017-12-21] MEDS: NORCO 5/325 MG PO PRN ×2 (10:55→15:26)
[2017-12-21 16:34] VITALS: BP 146/64; PULSE 95; O2SAT 97
[2017-12-21] MEDS ORDERED: PLAVIX 75 MG Tablet PO SCH (22:00)
[2017-12-23 00:43] LABS: HEPATITIS B VIRUS CORE TOT AB Reactive (Non Reactive); HEPATITIS C VIRUS ANTIBODY Weak Reactive (Non Reactive); Hepatitis B Surface Antigen Non Reactive (Non Reactive)
== END 2017-12-21 16:40 | disposition home health service (06) | DRG 418 ==
LOC: ED 19:23 → MED SURG 12-19 01:39 → OBSVTOIN 12-19 12:15
PROVIDERS: ADMIT General Practice; ATTEND General Practice
PROC: 0FT44ZZ Resection of Gallbladder, Percutaneous Endoscopic Approach (ICD-10-PCS; principal; 2017-12-20)
DX: R10.9 Unspecified abdominal pain (principal); K80.10 Calculus of gallbladder with chronic cholecystitis without obstruction; N17.9 Acute kidney failure, unspecified; E83.42 Hypomagnesemia; N18.9 Chronic kidney disease, unspecified; R10.11 Right upper quadrant pain; Z72.0 Tobacco use; K82.8 Other specified diseases of gallbladder; R19.7 Diarrhea, unspecified; R11.2 Nausea with vomiting, unspecified; M54.9 Dorsalgia, unspecified; G89.29 Other chronic pain; F45.42 Pain disorder with related psychological factors; Z87.891 Personal history of nicotine dependence; Z79.899 Other long term (current) drug therapy; G62.9 Polyneuropathy, unspecified; E11.9 Type 2 diabetes mellitus without complications; Z79.4 Long term (current) use of insulin; M19.90 Unspecified osteoarthritis, unspecified site; K21.9 Gastro-esophageal reflux disease without esophagitis
CPT/HCPCS: 00790; 36000; 36415; 71046; 74176; 76705; 76937; 80053; 80074; 80076; 81000; 82150; 82962; 83036; 83690; 83735; 85025; 85027; 87086; 88304; 93005; 94010; 94640; 94760; 96360; 96365; 99100; 99285; J0694; J1650; J2405; J2550; J2704; J3010; J3475; A9270-GY

== ENCOUNTER 2018-03-08 11:42 | Emergency (ER) | payer MEDICARE ==
[2018-03-08 11:51] VITALS: BP 174/95; PULSE 102; O2SAT 98
[2018-03-08] MEDS ORDERED: Augmentin 875-125 Tablet PO ONE (11:51)
[2018-03-08] MEDS ORDERED: Augmentin 875-125 Tablet ONE (11:56)
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
--- NOTE | 2018-03-08 12:07 | XRAY ---
Indication: Second finger dog scratch. Swelling. Comparison: None 2 views of the left hand obtained using portable technique demonstrates small scaphoid bone cyst. No other bony, articular, or soft tissue abnormalities.
== END 2018-03-08 12:21 | disposition home or self-care (01) ==
LOC: ED 11:42
DX: L03.114 Cellulitis of left upper limb (principal); S60.512A Abrasion of left hand, initial encounter; W54.8XXA Other contact with dog, initial encounter
CPT/HCPCS: 73120; 99283; A9270-GY

== ENCOUNTER 2018-04-13 18:31 | Observation (INO) | payer MEDICARE ==
[2018-04-13] MEDS ORDERED: Zofran 4 MG/2 ML VIAL IV ONE (19:04)
[2018-04-13] MEDS ORDERED: SUBLIMAZE 100 MCG/2 ML IV ONE (19:06)
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
[2018-04-13] MEDS ORDERED: Sodium Chloride 0.9% 1000 ML 1,000 ML IV SCH (19:15)
[2018-04-13] MEDS ORDERED: Zofran 4 MG/2 ML VIAL ONE (19:35)
[2018-04-13] MEDS ORDERED: SUBLIMAZE 100 MCG/2 ML ONE (19:35)
[2018-04-13] MEDS ORDERED: Sodium Chloride 0.9% 1000 ML 1,000 ML ONE (19:36)
[2018-04-13 19:49] LABS: BASOPHIL % 0.1 % (0.0-0.4); Basophil (Absolute #) 0.01 (0-0.4); Eosinophil % 2.6 % (0.00-5.0); Eosinophil (Absolute #) 0.24 (0-0.5); Granulocyte Absolute (ANC) 7.29 (1.4-6.9); Granulocytes % 79.8 % (36.0-66.0); Hematocrit 36.3 % (42-50); Lymphocytes % 10.9 % (24.0-44.0); Mean Cell Volume 92.1 fl (78-100); Mean Corpuscular Hgb Concent. 33.1 g/dl (32-36); Mean Platelet Volume 9.2 fl (6-9.5); Monocytes % 6.6 % (0.0-12.0); Platelet Count 168 K/mm3 (150-450); Red Blood Count 3.94 M/mm3 (4.1-5.6); Red Cell Distribution Width 12.6 % (11.5-14.0); White Blood Count 9.1 K/mm3 (4.0-10.5)
[2018-04-13 20:02] LABS: Mean Corpuscular Hemoglobin 30.4 pg (26-32)
[2018-04-13 20:03] LABS: ALBUMIN 3.9 g/dL (3.5-5.0); ANION GAP 14.2 MEQ/L (5-15); BILIRUBIN,TOTAL 0.4 mg/dL (0.2-1.3); Calcium 9.5 mg/dL (8.4-10.2); Creatinine 1 3.67 mg/dL (0.66-1.25); Potassium 3.1 mmol/L (3.5-5.1); Total Protein 6.8 g/dL (6.3-8.2)
[2018-04-13 20:35] LABS: Appearance HAZY (CLEAR); Leukocyte Esterase 1+ (NEGATIVE); Specific Gravity 1.015 (1.005-1.025)
[2018-04-13 20:36] LABS: Bacteria MODERATE /HPF (NEGATIVE); Bilirubin NEGATIVE (NEGATIVE); Blood 250 Ery/ul (0-5); Epithelial Cells MODERATE /HPF (FEW); Glucose 1000 mg/dL (NEGATIVE); Ketones SMALL (NEGATIVE); Nitrite NEGATIVE (NEGATIVE); Protein,Urine Dip 100 (Negative); Urobilinogen NORMAL mg/dL (0-1); WBC 15-25 /HPF (0-5)
[2018-04-13] MEDS ORDERED: ROCEPHIN 1 Gm-D5w 50 ml Bag** 1 G/50 ML IVPB IV STA (20:44)
[2018-04-13] MEDS ORDERED: ROCEPHIN 1 Gm-D5w 50 ml Bag** 1 G/50 ML IVPB IV ONE (21:06)
[2018-04-13] MEDS ORDERED: Sodium Chloride 0.9% W/ 20 mEq KCl/LITER 1,000 ML IV SCH (21:15)
[2018-04-13] MEDS ORDERED: Prozac 20 MG PO SCH (22:00)
--- NOTE | 2018-04-13 22:13 | XRAY ---
Indication: Left abdomen pain, nausea, and vomiting 3 days. Multiple contiguous axial images obtained through the abdomen and pelvis without contrast as ordered. Comparison: December 18, 2017. Lung bases again demonstrates minimal bibasilar dependent atelectasis and calcified granulomas. Heart is not enlarged. There has been interval cholecystectomy. No free fluid/air. Noncontrasted stomach and bowel loops appear nonobstructed. Previous reported appendectomy. Again a few calcified splenic granulomas, bilateral renal cortical thinning, and small left upper renal exophytic high density lesion. Remaining liver, pancreas, spleen, adrenal glands, kidneys, ureters, and bladder appear unremarkable for noncontrast exam. Stable bilateral seminal vesicle calcifications and moderate aortoiliac calcifications. No AAA. Osseous structures intact again with mild degenerative changes throughout the spine. Impression: 1. Status post cholecystectomy. No complications. 2. Stable either renal cortical thinning and small left renal hyperdense lesion. 3. No acute intra-abdominal/pelvic abnormalities on this noncontrast exam. CTDI 25.18
[2018-04-13] MEDS ORDERED: PROZAC 10 MG ONE (23:34)
[2018-04-13] MEDS: NEURONTIN 300 MG PO SCH (23:55)
[2018-04-13] MEDS: Lopressor 50 MG PO SCH (23:55)
[2018-04-13] MEDS: Zofran 4 MG/2 ML VIAL IV PRN (23:56)
[2018-04-14] MEDS: SUBLIMAZE 100 MCG/2 ML IV PRN ×2 (02:21→08:31)
[2018-04-14] MEDS: Zofran 4 MG/2 ML VIAL IV PRN (08:42)
[2018-04-14] MEDS: NovoLOG Insulin SQ PRN ×2 (08:45→12:19)
[2018-04-14] MEDS ORDERED: MEDICATION INTERVENTION PO SCH (09:30)
[2018-04-14] MEDS ORDERED: NON-FORMULARY ITEM (Insulin Detemir [Levemir] 10 UNIT) SQ SCH (10:00)
[2018-04-14] MEDS ORDERED: Ativan 0.5 MG PO PRN (10:00)
[2018-04-14] MEDS ORDERED: PLAVIX 75 MG Tablet PO SCH (10:00)
[2018-04-14] MEDS ORDERED: Protonix 40MG Tablet PO SCH ×2 (10:00)
[2018-04-14] MEDS ORDERED: Lantus Insulin SQ SCH (10:00)
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
[2018-04-14] MEDS: Lopressor 50 MG PO SCH (10:50)
[2018-04-14] MEDS: NEURONTIN 300 MG PO SCH (10:50)
[2018-04-14 12:09] VITALS: BP 128/60; PULSE 70; O2SAT 97
--- NOTE | 2018-04-14 12:49 | PCM.DCORD ---
- Discharge Discharge Date: 04/14/18 Disposition: Home, Self-Care Condition: Stable Prescriptions: Continue Insulin Lispro [Humalog] 20 unit SQ BIDWMEALS Gabapentin [Neurontin] 300 mg PO TID Insulin Detemir [Levemir] 10 unit SQ TID Fluoxetine HCl 10 mg [Prozac 10 mg] 20 mg PO HS PANTOPRAZOLE 40 mg Tablet [Protonix 40MG Tablet] 40 mg PO BID Atorvastatin Calcium 80 mg PO HS Sevelamer Carbonate [Renvela] 800 mg PO TID Clopidogrel Bisulfate [Clopidogrel] 75 mg PO HS Metoprolol Tartrate 50 mg [Lopressor 50 MG] 50 mg PO BID Lorazepam 0.5 mg [Ativan 0.5 MG] 0.5 mg PO DAILY Instructions: Acid Reflux (Gastroesophageal Reflux Disease) in Adults Follow up with: BARBARA SIERRA MD [Primary Care Provider] - 1 Week
[2018-04-14] MEDS ORDERED: NovoLOG Insulin SQ SCH (17:00)
[2018-04-14] MEDS ORDERED: INSULIN LISPRO 20 UNIT SQ SCH (17:00)
[2018-04-14] MEDS ORDERED: NON-FORMULARY ITEM (Atorvastatin Calcium [Atorvastatin Calcium] 80 MG) PO SCH (22:00)
[2018-04-14] MEDS ORDERED: ZOCOR 20MG PO SCH (22:00)
[2018-04-14] MEDS ORDERED: ROCEPHIN 1 Gm-D5w 50 ml Bag** 1 G/50 ML IVPB IV SCH (22:00)
== END 2018-04-14 14:20 | disposition home health service (06) ==
LOC: ED 18:31 → MED SURG 22:04
PROVIDERS: ADMIT General Practice; ATTEND General Practice
DX: R10.84 Generalized abdominal pain (principal); N17.9 Acute kidney failure, unspecified; N18.9 Chronic kidney disease, unspecified; R19.7 Diarrhea, unspecified; K21.9 Gastro-esophageal reflux disease without esophagitis; G62.9 Polyneuropathy, unspecified; E78.00 Pure hypercholesterolemia, unspecified; E11.9 Type 2 diabetes mellitus without complications; M19.90 Unspecified osteoarthritis, unspecified site; Z87.891 Personal history of nicotine dependence
CPT/HCPCS: 36415; 74176; 80053; 81000; 82150; 83690; 85025; 87040; 87086; 94760; 96365; 96367; 96374; 96375; 99285; G0378; J0696; J2405; J3010; A9270-GY